=== PATIENT | female | born 1945 | race Caucasian/White ===

== ENCOUNTER 2018-04-25 12:30 | Outpatient (RCR) | payer MEDICARE, SELFPAY ==
--- NOTE | 2018-04-13 10:57 | HP.PTEVAL_ITS ---
Patient's Visit Information CORIN MAK is a 72 year old F referred to Physical Therapy by [facility] Gay with a diagnosis of L hip pain. Date of Evaluation: 04/13/18 Physical Therapist: Fran Alanis DPT, [place] - Visit Plan Frequency: 2x /Week Duration: 4 Weeks Plan: 2x/week for 4 weeks : rollout and stretch piriformis and ITB. strength L hip abd, rotators and extenders and progress to HEP. Ensure appropriate activity miodification and anti inflammatory doing its job. - Subjective Subjective: Got L butt pain. There for a couple months insidiously and fairly constant. Similar R butt pain last [place] but went away on its own. Given anti inflammatory which has helped, Has tried SKC and leg lifts in front and rolling it to side but they have not helped. Comfortable currently at rest. Sitting on hard surface is worse. squat to sit in chair is worse. Steps are painful on L butt, has been using R LE. NOt employed. Sleeping OK. Activities : are getting back to normal but avoided everything for a while until meds kicked in. Spends day doing work around house and reading and watching TV. Enjoys going out with firends but avoided it because it hurt for a while there. Sat on a hard chair for long time and it hurt. - Pain L lower butt Pain Intensity (Out of 10): 1 Pain Intensity Range: 1, 2 Comment: since anti inflamm - Objective Walks without antalgia I today, steps reciprocally with slight pain ascending on L in buttock but I with rail. Trasnfers I but scooting adn turning on bed very hard, not painful. AROM at hips is symmetrical and WNL, - scouring test.- VIBHA, - FADDIR. Weak in hips at 3+/5 B hip abd, rotations and ext, 4- flexion. Knees and ankles 4/5. reflexes 2/3 in patella and achilles. Sensation LE WNL to gross light touch. Tender to touch in L glut, ITB, greater trochanter adn piriformis. LB ROM WFL and not painful. - Goals Goal 1:: Pain 0/10 and 99% better for patient for 3 days. Goal Time Frame: 2-4 Weeks Goal 2:: Pt I in appropriate ex to limit future problems Goal Time Frame: 2-4 Weeks Goal 3:: Housework adn social life return to normal without painful limitations in L hip Goal Time Frame: 2-4 Weeks - Rehabilitation Potential Physical Therapy Diagnosis: L hip pain likely soft tissue, gluts and piriformis. - Anticipated Interventions Patient/Client Instruction: Educate patient on: Condition, Plan of Care For the Purpose of:: To decrease pain Therapeutic Exercise to Include: Strength training, Flexibilty training, Passive ROM, Active ROM For the Purpose of:: To decrease pain, To increase ROM, To improve ability of physical actions for home/community/work/leisure Manual Therapy Techniques to Include: Passive ROM, Soft tissue mobilization For the Purpose of:: To decrease pain, To increase ROM, To improve ability of physical actions for home/community/work/leisure Thermo therapy (hot pack): Yes For the Purpose of:: To increase ROM Thank you for the opportunity to evaluate your patient. For Medicare and Medicare HMO plans, please review the plan of care and approve it. It will need to be FAXED BACK to us at [phone] for Medicare purposes. Please let me know if there are questions or concerns regarding this plan of care. Physician Signature: Date:
--- NOTE | 2018-06-30 11:29 | HP.PT.NRP ---
HP - Discharge Summary (1) - Patient Information CORIN MAK was seen in my office for initial evaluation on 04/13/18. The following Plan of Care was established for this patient: Initial Frequency: 2x /Week Initial Duration: 4 Weeks - Anticipated Interventions Patient/Client Instruction: Educate patient on: Condition, Plan of Care For the Purpose of:: To decrease pain Therapeutic Exercise to Include: Strength training, Flexibilty training, Passive ROM, Active ROM For the Purpose of:: To decrease pain, To increase ROM, To improve ability of physical actions for home/community/work/leisure Manual Therapy Techniques to Include: Passive ROM, Soft tissue mobilization For the Purpose of:: To decrease pain, To increase ROM, To improve ability of physical actions for home/community/work/leisure Thermo therapy (hot pack): Yes For the Purpose of:: To increase ROM This patient was last seen in our office 04/25/18. Pertinent comments regarding their Physical therapy will appear below: Pt seen for four visits adn was doing much better. The plan was to f/u two weeks later to ensure doing well but patient did not attend. I will discontinue due to nonattendance. At this point I will be discontinuing this patient from physical therapy. I would be happy to see this patient again in the future if found appropriate by the physician. Thank you! Fran Alanis, [place], [place]
== END 2018-04-25 19:00 | disposition home or self-care (01) ==
LOC: PT 12:30
PROVIDERS: Family Provider Internal Medicine; PCP Internal Medicine; Visit Provider Nurse Practitioner Primary Care
DX: M25.552 Pain in left hip (principal)
CPT/HCPCS: 97110; 97162; 97530